=== PATIENT | male | born 1970 | race Caucasian/White ===

== ENCOUNTER 2016-03-07 07:30 | Emergency (ER) | payer OTHER ==
[~2016-03-07] VITALS: Ht 170.2 cm; Wt 95.3 kg
--- NOTE | 2016-03-07 08:01 | ED INFLUENZA/URI COMPLAINT ---
History of Present Illness General Chief Complaint: Upper Respiratory Sx/Fever Stated Complaint: URI [id number] Source: patient Exam Limitations: no limitations Vital Signs & Intake/Output Vital Signs & Intake/Output Vital Signs Date Time Temp Pulse Resp B/P Pulse O2 O2 Flow FiO2 Ox Delivery Rate 03/07 0858 98.4 70 20 150/70 98 Room Air 03/07 0838 996 03/07 0800 Room Air 03/07 0737 98.4 73 20 157/73 95 Room Air Allergies Coded Allergies: NSAIDS (Non-Steroidal Anti-Inflamma (Severe, ANAPHYLAXIS 03/07/16) ibuprofen (Severe, ANAPHYLAXIS 03/07/16) diphenhydramine (ANGIODEMA 03/07/16) testosterone (From AXIRON) (ANGIODEMA 03/07/16) Reconcile Medications Albuterol Sulfate 2.5 MG/3 ML (0.083 %) VIAL.NEB 1 Vial INH/FAWAD Q4P PRN wheezing/shortness of breath Azithromycin 250 MG TABLET 1 DP PO AD lung infection 2 the first day followed by 1 for days 2-5 Benzonatate 200 MG CAPSULE 1 CAP PO TID PRN cough Triage Note: C/O FEVER, SORE THRAOT, COUGH X 6 DAYS, COUGH WORSE THE PAST 3 DAYS, PROCDUCTIVE YELLOW SPUTUM. ALSO STATES HIS CHEST HURTS WITH COUGHING. Triage Nurses Notes Reviewed? yes HPI: Patient is a 46-year-old male presents complaining of cough, chest congestion, sputum production. Symptoms 6 days. Cough with yellow sputum production, associated wheezing. Patient reports mild chest discomfort with cough only, no chest discomfort apart from cough. Subjective fevers yesterday, patient has not checked his temperature at home. Patient has been taking Tylenol with moderate improvement. Positive sick contact, reports his was sick with similar symptoms last week. Past History Travel History Traveled to [place] past 21 day No Medical History Any Pertinent Medical History? see below for history Neurological: NONE EENT: NONE Cardiovascular: NONE Respiratory: NONE Gastrointestinal: NONE Hepatic: NONE Renal: NONE Musculoskeletal: NONE Psychiatric: NONE Endocrine: diabetes Blood Disorders: NONE Cancer(s): NONE Other Medical Hx: Peripheral neuropathies Surgical History Surgical History: non-contributory Psychosocial History What is your primary language [place] Tobacco Use: Current Daily Use Daily Tobacco Use Amount/Type: => 5 Cigarettes daily ETOH Use: denies use Family History Hx Contributory? No Review of Systems Review of Systems Constitutional: Reports: chills, fever. EENTM: Reports: no symptoms. Respiratory: Reports: cough, wheezing. Cardiovascular: Reports: chest pain (with cough only). GI: Denies: abdominal pain, nausea, vomiting. Musculoskeletal: Reports: no symptoms. Skin: Reports: no symptoms. Neurological/Psychological: Reports: no symptoms. Hematologic/Endocrine: Reports: no symptoms. Immunologic/Allergic: Reports: no symptoms. Physical Exam Physical Exam General Appearance: well developed/nourished, alert, awake Head: atraumatic, normal appearance Eyes: Bilateral: normal appearance, PERRL, EOMI. Ears, Nose, Throat: moist mucous membrane, hearing grossly normal, pharynx normal, poor dentition Neck: normal inspection, supple, full range of motion Respiratory: mild diffuse expiratory wheezing Cardiovascular: regular rate/rhythm Gastrointestinal: soft, non-tender Back: normal inspection, normal range of motion Extremities: normal inspection, normal capillary refill, normal range of motion Neurologic/Psych: no motor/sensory deficits, awake, alert, oriented x 3, normal gait, normal mood/affect Skin: intact, normal color, warm/dry Lymphatic: no anterior cervical umair Core Measures Severe Sepsis Present: No Septic Shock Present: No Progress Differential Diagnosis: influenza, pneumonia, viral URI, bronchitis Plan of Care: Orders Procedure Date/time Status XRY-CHEST XRAY, PA AND LATERAL 03/07 805 Active Patient reports improvement after nebulizer treatment. Results chest x-ray discussed with patient. Patient appears stable for discharge with outpatient follow-up. ([place] JACKSON,MARÍA) Diagnostic Imaging: Viewed by Me: Radiology Read. Discussed w/RAD: Radiology Read. Initial ED EKG: none Comments: PATIENT: CAMILO SHERWOOD JR PRESENT AGE: 46 PATIENT ACCOUNT NO: [id number] : 68 LOCATION: [facility] ORDERING PHYSICIAN: MARÍA JACKSON SERVICE DATE: 03/07/16 EXAM TYPE: RAD - XRY-CHEST XRAY, PA AND LATERAL EXAMINATION: XR CHEST CLINICAL INFORMATION: Cough with sputum production COMPARISON: None. TECHNIQUE: PA and lateral views of the chest were obtained. FINDINGS: Lung volumes are symmetric. No focal consolidation is seen. No evidence of pneumothorax, pleural effusion, or pulmonary edema. The cardiomediastinal contour is unremarkable. Mild degenerative changes are present in the spine. IMPRESSION: No acute cardiopulmonary findings. DICTATED BY: ARTI LEMA MD DATE/TIME DICTATED:03/07/16821 SENIOR COLDFUSION DEVELOPER:RAJI DATE/TIME TRANSCRIBED:03/07/16821 CONFIDENTIAL, DO NOT COPY WITHOUT APPROPRIATE AUTHORIZATION. <Electronically signed in Other Vendor System> SIGNED BY: ARTI LEMA MD 03/07/16825 Departure Departure Time of Disposition: 850 Disposition: HOME OR SELF CARE Condition: Stable Clinical Impression Primary Impression: Bronchitis Referrals: KAYLEE EATON MD (PCP/Family) Additional Instructions: Follow up with your primary doctor next week for further evaluation, call today for appointment. Use your nebulizer every 4 hours as needed for wheezing and shortness of breath. Return to the ER if breathing worsening, unable to stay hydrated or worsening of symptoms. Departure Forms: Customer Survey General Discharge Information Prescriptions: Current Visit Scripts Azithromycin 1 DP PO AD #6 TAB 2 the first day followed by 1 for days 2-5 Benzonatate 1 CAP PO TID PRN cough #30 CAP Albuterol Sulfate 1 Vial INH/FAWAD Q4P PRN wheezing/shortness of breath #50 Vial
--- NOTE | 2016-03-07 08:26 | RADIOLOGY REPORT ---
EXAMINATION: XR CHEST CLINICAL INFORMATION: Cough with sputum production COMPARISON: None. TECHNIQUE: PA and lateral views of the chest were obtained. FINDINGS: Lung volumes are symmetric. No focal consolidation is seen. No evidence of pneumothorax, pleural effusion, or pulmonary edema. The cardiomediastinal contour is unremarkable. Mild degenerative changes are present in the spine. IMPRESSION: No acute cardiopulmonary findings.
[2016-03-07] MEDS ORDERED: AZITHROMYCIN250 M1 PO (08:52)
[2016-03-07] MEDS ORDERED: ALBUTEROL2.5 MG/3 M INH/SOL (08:52)
[2016-03-07] MEDS ORDERED: BENZONATATE200 M1 PO (08:52)
[2016-03-07 08:58] VITALS: BP 150/70
== END 2016-03-07 09:01 ==
LOC: ERH 07:30
DX: J40 Bronchitis, not specified as acute or chronic (principal); Z72.0 Tobacco use
CPT/HCPCS: 1263